=== PATIENT | female | born 1960 | race Caucasian/White ===

== ENCOUNTER 2018-12-30 22:47 | Inpatient (IN) | payer BC ==
[~2018-12-30] VITALS: Ht 172.7 cm; Wt 91.8 kg
[2018-12-30 22:48] VITALS: BP 141/75
[2018-12-30] MEDS ORDERED: CELEXA 10 MG TA10 MG PO (22:59)
[2018-12-30] MEDS ORDERED: OMEPRAZOLE20 M3 PO (22:59)
[2018-12-30] MEDS ORDERED: SYNTHROID125 MC1 PO (22:59)
[2018-12-30 23:09] LABS: ABSOLUTE NEUTROPHILS 5.3 thou/uL (1.4-8.2); BASOPHILS 0.5 % (0.0-2.0); EOSINOPHILS 1.7 % (0.0-3.0); HEMATOCRIT 37.7 % (37.0-47.0); HEMOGLOBIN 12.8 gm/dL (12.0-15.0); LYMPHOCYTES 17.9 % (24.0-44.0); MCH 29.3 pg (26.0-34.0); MCV 86.2 fL (80.0-100.0); MONOCYTES 1.2 % (1.0-8.0); PLATELET COUNT 197 thou/uL (150-400); POLYS 78.7 % (36.0-66.0); RBC 4.37 mil/uL (4.20-5.00); RDW 13.5 % (10.5-14.5); WBC 6.8 thou/uL (4.0-11.0)
[2018-12-30 23:15] LABS: ANION GAP 9 mmol/L (7-16); BUN 12 mg/dL (7-18); CALCIUM 8.3 mg/dL (8.5-10.1); CHLORIDE 105 mmol/L (98-107); CO2 28 mmol/L (21-32); CREATININE 0.9 mg/dL (0.6-1.0); GLUCOSE 124 mg/dL (74-106); POTASSIUM 3.8 mmol/L (3.5-5.1); SODIUM 142 mmol/L (136-145)
[2018-12-30 23:22] LABS: APTT 27.8 Seconds (24.5-32.8); PROTIME 10.3 Seconds (9.3-11.4)
[2018-12-30 23:25] LABS: ALBUMIN 3.6 g/dL (3.4-5.0); MAGNESIUM 1.8 mg/dL (1.8-2.4); SGOT 27 U/L (15-37); SGPT 40 U/L (30-65); TOTAL BILIRUBIN 0.4 mg/dL (<0.1-1.0); TOTAL PROTEIN 7.1 g/dL (6.4-8.2); TROPONIN-I <0.06 ng/mL (<0.06)
--- NOTE | 2018-12-30 23:58 | EKG ---
[address] [address] ELECTROCARDIOGRAM REPORT Name: SHARYN JOSÉ Room #: [facility].R.#: [id number] ������������������ Admission: ������������������ Attend Phys: Discharge: ������������������ Date of : 56 Report #: [id number] ����������������������������������������������������������������� [id number] THIS REPORT FOR: //name// [facility] ED Test Date: 2018-12-30 Test Time: 22:57:21 Pat Name: SHARYN JOSÉ Department: Room: Gender: F [employer]: jane : 1960 Requested By: Alden Curry Order Number: [id number] MD: Kenn Ramon Measurements Intervals [place] Rate: 104 P: 50 MN: 130 QRS: 48 QRSD: 91 T: 35 QT: 329 QTc: 433 Interpretive Statements Sinus tachycardia early transition No previous ECG available for comparison Electronically Signed On 12-30-2018 23:58:41 [employer] by Kenn Ramon [email or web address] ��������������������������������������������� <ELECTRONICALLY SIGNED> ���������������������������������������� By: Kenn Ramon MD ��������������������������������������������� 12/30/18 [id number] Kenn Ramon MD /EPI
[2018-12-31] VITALS (7 sets, daily range): BP systolic 100–132; BP diastolic 50–82
[2018-12-31 00:38] LABS: URINE BILIRUBIN NEGATIVE (Negative); URINE BLOOD NEGATIVE (Negative); URINE CLARITY SL HAZY; URINE COLOR YELLOW; URINE GLUCOSE-RANDOM* NEGATIVE (Negative); URINE KETONES TRACE (Negative); URINE LEUKOCYTES-REFLEX TRACE (Negative); URINE NITRITE-REFLEX POSITIVE (Negative); URINE PROTEIN (DIPSTICK) NEGATIVE (Negative); URINE UROBILINOGEN 0.2 E.U./dl (0.2-1.0)
[2018-12-31 00:48] LABS: CASTS None Seen /LPF (None Seen); CRYSTALS None Seen /LPF (None Seen); MUCUS 0-3 Light strn/LPF (None Seen); SQUAMOUS 0-3 Few /LPF (0-3); URINE RBC 0-2 Rare /HPF (0-2); URINE WBC-REFLEX 6-15 Few /HPF (0-5)
--- NOTE | 2018-12-31 04:32 | NUR ---
Arrived from ER around 0200. Chest discomfort miod to left arm and back is now at 4/10 which is a lot better as compared to earlier when in ER. No c/o shortness of breath this time , pt. stated it has gotten better as well. Tolerating room air well with O2 sat in the upper 90's. Still has numbness on both hands but no more burning. Still a little nauseous and denies need for nausea med at this time. Temp 99.8 orally. C/o bladder discomfort , burning and frequency in urination. She requested heating pad for her abdomen which usually helps with bladder discomfort. She is a lot calmer upon arrival on the floor just wondering if she'll be discharged today. Up ad evan in room with steady gait. Will continue to monitor.
[2018-12-31 05:33] LABS: CALCIUM 7.8 mg/dL (8.5-10.1); CREATININE 0.8 mg/dL (0.6-1.0); POTASSIUM 4.2 mmol/L (3.5-5.1)
--- NOTE | 2018-12-31 14:08 | NUR ---
ASSUMED PATIENT CARE AT 0715. A&OX4. COMPLAINTS OF CHEST PAIN AND TINGLING AND NUMBNESS IN THE HANDS. PATIENTS TROPONINS WERE NEGATIVE. EKG SHOWED SINUS TACH. PATIENT RUNNING SINUS TACH ON THE MONITOR. HOSPITALIST NOTIFIED. XANAX AND TRAMADOL ORDERED. PATIENT MUCH CALMER LATE MORNING. MRI AND RENAL US DONE TODAY. SEE RESULTS. LAB CALLED WITH POSITIVE BLOOD CULTURES. HOSPITALIST NOTIFIED. PATIENT RESTING COMFORTABLY. WORKING TOWARDS DC GOALS.
--- NOTE | 2018-12-31 14:11 | NUR ---
ASSESSMENT-PT LIVES IN A RANCH STYLE HOME WITH HER . PT WAS INDEPENDENT OF ADLS AND AMBULATION PRIOR TO ADMISSION. PT DRIVES. HER IS IN GOOD HEALTH AND ABLE TO ASSIST WITH ANY NEEEDS. PT VOICES NO CONCERNS RELATED TO DC NOR ANY DC NEEDS AT THIS TIME. FOLLOWING TO ASSIST WITH DC PLANNING. PT'S INSURANCE INFO PROVIDED TO [employer] IN PRE-CERT.
[2019-01-01 04:00] VITALS: BP 110/67
--- NOTE | 2019-01-01 06:26 | NUR ---
Pt. stated she slept better and feels better . Tylenol given last night for chest soreness 4/10 and headache. with good relief. No chest soreness this am though she woke up with headache and neck pain. Tramadol given per pt. request. Afebrile . Verbalized bladder discomfort is better. No c/o nausea. Up ad evan in room with steady gait. Making progress towards care plan goals.
[2019-01-01 07:09] VITALS: BP 125/77
[2019-01-01] MEDS ORDERED: CEFUROXIME250 MG PO (09:33)
[2019-01-01] MEDS ORDERED: TRAMADOL 50 MG50 MG PO (09:34)
[2019-01-01] MEDS ORDERED: CYCLOBENZAPRINE5 MG PO (09:34)
[2019-01-01] MEDS ORDERED: SYNTHROID75 MCG PO (09:35)
[2019-01-01 09:47] VITALS: BP 125/77
--- NOTE | 2019-01-01 10:22 | NUR ---
ASSUMED PATIENT CARE AT 0715. A&OX4. PATIENT VERY ANXIOUS THIS MORNING. PATIENT STATING THAT TRAMADOL MADE THEM SICK. PATIENT TOOK TRAMADOL YESTERDAY AND IT CAUSED NO NAUSEA. ZOFRAN GIVEN. PATIENT CLEARED FOR DISCHARGE BY HOSPITALIST CLEARED PATIENT FOR DISCHARGE. PATIENT SLEEPING WHEN NUSRE WENT IN TO DISCHARGE. FAMILY AT BEDSIDE. DISCHARGE INSTRUCTIONS GIVEN. DISCHARGE PAPERWORK SIGNED.
== END 2019-01-01 10:42 | disposition home or self-care (01) | DRG 872 ==
LOC: ER 22:47 → 3W 12-31 00:43 → EROBS 12-31 00:43 → 3W 12-31 02:18 → ENTRNSPT 01-01 10:33 → EDTRNSPTSTS 01-01 10:37 → 3W 01-01 10:42
PROVIDERS: Emergency Medicine; Nurse Practitioner Family; ADMIT Hospitalist
DX: A41.9 Sepsis, unspecified organism (principal); N39.0 Urinary tract infection, site not specified; I10 Essential (primary) hypertension; I48.91 Unspecified atrial fibrillation; G58.8 Other specified mononeuropathies; E89.0 Postprocedural hypothyroidism; R07.9 Chest pain, unspecified; K21.9 Gastro-esophageal reflux disease without esophagitis; F41.0 Panic disorder [episodic paroxysmal anxiety]; Z90.710 Acquired absence of both cervix and uterus; Z85.850 Personal history of malignant neoplasm of thyroid; Z79.899 Other long term (current) drug therapy; Z88.2 Allergy status to sulfonamides; Z88.5 Allergy status to narcotic agent; Z88.8 Allergy status to other drugs, medicaments and biological substances; Z23 Encounter for immunization
CPT/HCPCS: 10879